=== PATIENT | female | born 1995 | race American Indian/Alaskan Native ===

== ENCOUNTER 2017-11-20 16:54 | Emergency (ER) | payer MEDICAID ==
[2017-11-20] MEDS ORDERED: ZOFRAN IV ONE (17:53)
[2017-11-20 18:43] LABS: Basophils % (Auto) 0.6 % (0.0-1.8); Eosinophils # (Auto) 0.1 K/mm3 (0.0-0.4); Eosinophils % (Auto) 1.3 % (0.0-4.3); Hematocrit 27.7 % (30.3-42.9); Hemoglobin 9.2 gm/dl (10.1-14.3); Lymphocytes % (Auto) 32.4 % (13.4-35.0); Mean Corpuscular HGB Conc 33 % (30-34); Mean Corpuscular Hemoglobin 30 pg (28-32); Mean Corpuscular Volume 89 fl (79-97); Monocytes # (Auto) 0.6 K/mm3 (0.0-0.8); Monocytes % (Auto) 10.5 % (0.0-7.3); Platelet Count 209 K/mm3 (140-440); Red Blood Count 3.12 M/mm3 (3.65-5.03); Red Cell Distribution Width 14.1 % (13.2-15.2)
[2017-11-20 18:58] LABS: Albumin 3.5 g/dL (3.9-5)
[2017-11-20 19:35] VITALS: BP 122/77
--- NOTE | 2017-11-20 20:07 | Emergency Department Report ---
ED Abdominal Pain HPI - General Chief Complaint: High BP Stated Complaint: HBP/LOW BLOOD SUGAR Time Seen by Provider: 11/20/17 17:39 Source: EMS Mode of arrival: Stretcher Limitations: No Limitations - History of Present Illness Initial Comments: 22-year-old female with a past medical history of insulin-dependent diabetes, hypertension, end-stage renal disease on dialysis presents to the hospital with complaints of epigastric pain, nausea, vomiting, elevated blood pressure, and low glucose. Symptoms started this a.m. Patient states she's been having twisting epigastric pain and had 3-4 episodes of vomiting earlier today. Last bowel movement was this a.m. She denies melena, hematochezia, hematemesis, coffee-ground emesis, fevers, or previous abdominal surgeries. As per patient' s medications she is currently on Protonix and was recently prescribed Bentyl on November 11. Patient glucose was in the 40s upon EMS arrival. She ate a Pop Tart and glucose improved to the 60s. Patient currently does not have any pain or nausea and is requesting something to eat. She checks her blood pressure often and states that he has been fluctuating high and low for the Past week. She took her insulin today and states she ate a normal amount of food. She has minimal urine output chronically. This is her first visit here she typically goes to [facility] and her doctors are not affiliated with [facility]. - Related Data Previous Rx's Medication Instructions Recorded Last Taken Type Ondansetron [Zofran Odt] 4 mg PO Q8HR PRN #20 tab.rapdis 11/20/17 Unknown Rx Allergies Allergy/AdvReac Type Severity Reaction Status Date / Time ciprofloxacin [From Cipro] Allergy Unknown Unknown Verified 11/20/17 17:20 Penicillins Allergy Unknown Unknown Verified 11/20/17 17:19 ED Review of Systems ROS: Stated complaint: HBP/LOW BLOOD SUGAR Other details as noted in HPI Comment: All other systems reviewed and negative ED Past Medical Hx - Past Medical History Previous Medical History?: Yes Hx Hypertension: Yes Hx Diabetes: Yes Hx Renal Disease: Yes (Dialysis Tues, Thurs & Sat) Additional medical history: Vas Cath to right upper chest - Social History Smoking Status: Never Smoker Substance Use Type: None - Medications Home Medications: Home Medications Medication Instructions Recorded Confirmed Last Taken Type Ondansetron [Zofran Odt] 4 mg PO Q8HR PRN #20 tab.rapdis 11/20/17 Unknown Rx ED Physical Exam - General Limitations: No Limitations - Other Other exam information: General: No limitations, patient is alert in no acute distress Head exam: Atraumatic, normocephalic Eyes exam: Normal appearance ENT: Moist mucous membrane, normal oropharynx Neck exam: Normal inspection, full range of motion, no meningismus nontender Respiratory exam: Clear to auscultation bilateral, no wheezes, rales, crackles Cardiovascular: Normal rate and rhythm, right upper chest wall dialysis catheter Abdomen: Soft, nondistended, and nontender, with normal bowel sounds, no rebound, or guarding Extremity: Full range of motion normal inspection no deformity Back: Normal Inspection, full range of motion, no tenderness Neurologic: Alert, oriented x3, cranial nerves intact, no motor or sensory deficit Psychiatric: normal affect, normal mood ED Course Vital Signs 11/20/17 11/20/17 11/20/17 17:07 17:15 17:30 Temperature Pulse Rate 89 91 H 92 H Respiratory 7 L 10 L 11 L Rate Blood Pressure 156/105 134/90 O2 Sat by Pulse 99 Oximetry 11/20/17 11/20/17 11/20/17 17:45 18:00 18:15 Temperature Pulse Rate 92 H 91 H 86 Respiratory 16 13 13 Rate Blood Pressure 149/103 166/103 150/98 O2 Sat by Pulse 100 98 98 Oximetry 11/20/17 11/20/17 11/20/17 18:30 18:45 19:00 Temperature Pulse Rate 89 93 H 95 H Respiratory 13 15 11 L Rate Blood Pressure 138/93 121/77 109/68 O2 Sat by Pulse 96 Oximetry 11/20/17 11/20/17 19:15 20:02 Temperature 98 F Pulse Rate 96 H Respiratory 15 Rate Blood Pressure 122/77 O2 Sat by Pulse Oximetry - Reevaluation(s) Reevaluation #1: 11/20/17 20:50 Patient received Zofran in the ED. She is tolerating food. She has not had any recurrent pain, nausea, vomiting episodes while in the ED ED Medical Decision Making - Lab Data Result diagrams: 11/20/17 18:23 11/20/17 18:23 Lab Results 11/20/17 11/20/17 11/20/17 Range/Units 17:48 18:23 18:23 WBC 6.2 (4.5-11.0) K/mm3 RBC 3.12 L (3.65-5.03) M/mm3 Hgb 9.2 L (10.1-14.3) gm/dl Hct 27.7 L (30.3-42.9) % MCV 89 (79-97) fl MCH 30 (28-32) pg MCHC 33 (30-34) % RDW 14.1 (13.2-15.2) % Plt Count 209 (140-440) K/mm3 Lymph % (Auto) 32.4 (13.4-35.0) % Schley % (Auto) 10.5 H (0.0-7.3) % Eos % (Auto) 1.3 (0.0-4.3) % Baso % (Auto) 0.6 (0.0-1.8) % Lymph # 2.0 (1.2-5.4) K/mm3 Schley # 0.6 (0.0-0.8) K/mm3 Eos # 0.1 (0.0-0.4) K/mm3 Baso # 0.0 (0.0-0.1) K/mm3 Seg Neutrophils % 55.2 (40.0-70.0) % Seg Neutrophils # 3.4 (1.8-7.7) K/mm3 Sodium 138 (137-145) mmol/L Potassium 3.8 (3.6-5.0) mmol/L Chloride 95.6 L (98-107) mmol/L Carbon Dioxide 30 (22-30) mmol/L Anion Gap 16 mmol/L BUN 29 H (7-17) mg/dL Creatinine 3.7 H (0.7-1.2) mg/dL Estimated GFR 18 ml/min BUN/Creatinine Ratio 8 % Glucose 97 (65-100) mg/dL POC Glucose 112 H (70-105) Calcium 9.0 (8.4-10.2) mg/dL Total Bilirubin 0.20 (0.1-1.2) mg/dL AST 17 (5-40) units/L ALT 19 (7-56) units/L Alkaline Phosphatase 90 (35-129) units/L Total Protein 6.7 (6.3-8.2) g/dL Albumin 3.5 L (3.9-5) g/dL Albumin/Globulin Ratio 1.1 % Lipase 7 L (13-60) units/L HCG, Qual (Negative) 11/20/17 11/20/17 Range/Units 18:23 20:09 WBC (4.5-11.0) K/mm3 RBC (3.65-5.03) M/mm3 Hgb (10.1-14.3) gm/dl Hct (30.3-42.9) % MCV (79-97) fl MCH (28-32) pg MCHC (30-34) % RDW (13.2-15.2) % Plt Count (140-440) K/mm3 Lymph % (Auto) (13.4-35.0) % Schley % (Auto) (0.0-7.3) % Eos % (Auto) (0.0-4.3) % Baso % (Auto) (0.0-1.8) % Lymph # (1.2-5.4) K/mm3 Schley # (0.0-0.8) K/mm3 Eos # (0.0-0.4) K/mm3 Baso # (0.0-0.1) K/mm3 Seg Neutrophils % (40.0-70.0) % Seg Neutrophils # (1.8-7.7) K/mm3 Sodium (137-145) mmol/L Potassium (3.6-5.0) mmol/L Chloride (98-107) mmol/L Carbon Dioxide (22-30) mmol/L Anion Gap mmol/L BUN (7-17) mg/dL Creatinine (0.7-1.2) mg/dL Estimated GFR ml/min BUN/Creatinine Ratio % Glucose (65-100) mg/dL POC Glucose 73 (70-105) Calcium (8.4-10.2) mg/dL Total Bilirubin (0.1-1.2) mg/dL AST (5-40) units/L ALT (7-56) units/L Alkaline Phosphatase (35-129) units/L Total Protein (6.3-8.2) g/dL Albumin (3.9-5) g/dL Albumin/Globulin Ratio % Lipase (13-60) units/L HCG, Qual Negative (Negative) - Medical Decision Making since arrival to the ED patient's BP has been in normal range. Patient's glucose has been relatively stable and she was fed prior to discharge. Patient has also been asymptomatic without any pain. She'll be discharged home to follow with her primary care doctor and relationship mgr - Differential Diagnosis gastritis, gastroparesis, DKA, infection, Critical Care Time: No Critical care attestation.: If time is entered above; I have spent that time in minutes in the direct care of this critically ill patient, excluding procedure time. ED Disposition Clinical Impression: Gastritis, Hypoglycemia associated with diabetes, ESRD (end stage renal disease ) on dialysis Disposition: TO HOME OR SELFCARE Is pt being admited?: No Does the pt Need Aspirin: No Condition: Stable Instructions: Gastritis (ED), End-Stage Kidney Disease (ED), Diabetes Mellitus Type 1 in Adults (ED) Additional Instructions: Continue your current medication. Continue to monitor your blood pressure and glucose at home. Follow-up with his doctors for adjustment in your medications. Return if symptoms worsen as indicated by the discharge instructions. Prescriptions: Ondansetron [Zofran Odt] 4 mg PO Q8HR PRN #20 tab.rapdis PRN Reason: Nausea And Vomiting Referrals: PRIMARY CARE,MD [Primary Care Provider] - 3-5 Days your, nephrolgist [Other] - 3-5 Days Time of Disposition: 20:53
== END 2017-11-20 21:05 | disposition home or self-care (01) ==
LOC: ED 16:54
DX: E11.649 Type 2 diabetes mellitus with hypoglycemia without coma (principal); I12.0 Hypertensive chronic kidney disease with stage 5 chronic kidney disease or end stage renal disease; E11.22 Type 2 diabetes mellitus with diabetic chronic kidney disease; K29.70 Gastritis, unspecified, without bleeding; N18.6 End stage renal disease; Z99.2 Dependence on renal dialysis; Z79.899 Other long term (current) drug therapy; Z88.0 Allergy status to penicillin; Z88.1 Allergy status to other antibiotic agents
CPT/HCPCS: 36415; 80053; 82962; 83690; 84703; 85025; 96374; 99283; J2405

== ENCOUNTER 2018-05-06 16:17 | Emergency (ER) | payer MEDICARE, MEDICAID ==
--- NOTE | 2018-05-06 17:18 | Emergency Department Report ---
ED General Adult HPI - General Chief complaint: Hypoglycemia Stated complaint: LOW BLOOD GLUCOSE Time Seen by Provider: 05/06/18 17:18 Source: EMS Mode of arrival: Stretcher Limitations: No Limitations - History of Present Illness Initial comments: She is a 23-year-old female that is emergent with complaints of low blood sugar and altered mental status. Patient is brought in by EMS. Patient was found by EMS to be unresponsive and diaphoretic and was given D50 and woke up. Patient and EMS state that she had her dialysis today then took 6 units of regular insulin and didn't eat and her sugar dropped. Patient states this happens frequently due to forgetting to eat. Patient denies chest pain shortness of breath. Patient states she is tired from having a low blood sugar and dialysis.. Patient denies abdominal pain. Patient denies headache. Patient denies dizziness. -: Sudden Improves with: eating, medication, rest Worsens with: none Associated Symptoms: confusion, diaphoresis. denies: chest pain, cough, fever/chills, headaches, loss of appetite, malaise, nausea/vomiting, rash, seizure, shortness of breath, syncope, weakness Treatments Prior to Arrival: other (D50) - Related Data Previous Rx's Medication Instructions Recorded Last Taken Type Ondansetron [Zofran Odt] 4 mg PO Q8HR PRN #20 tab.rapdis 11/20/17 Unknown Rx Dicyclomine [Bentyl] 10 mg PO QID PRN #20 capsule 02/01/18 Unknown Rx Metoclopramide [Reglan] 10 mg PO Q6HR PRN #20 tab 02/01/18 Unknown Rx Ondansetron [Zofran ODT TAB] 4 mg PO Q4HR PRN #20 tab.rapdis 03/22/18 Unknown Rx traMADol [Ultram] 50 mg PO Q6HR PRN #12 tablet 03/22/18 Unknown Rx Allergies Allergy/AdvReac Type Severity Reaction Status Date / Time ciprofloxacin [From Cipro] Allergy Unknown Unknown Verified 11/20/17 17:20 Penicillins Allergy Unknown Unknown Verified 11/20/17 17:19 clindamycin Allergy Unknown Verified 02/01/18 19:38 codeine Allergy Unknown Verified 02/01/18 19:38 ED Review of Systems ROS: Stated complaint: LOW BLOOD GLUCOSE Other details as noted in HPI Constitutional: denies: chills, fever Eyes: denies: eye pain, eye discharge, vision change ENT: denies: ear pain, throat pain Respiratory: denies: cough, shortness of breath, wheezing Cardiovascular: denies: chest pain, palpitations Endocrine: no symptoms reported Gastrointestinal: denies: abdominal pain, nausea, diarrhea Genitourinary: denies: urgency, dysuria, discharge Musculoskeletal: denies: back pain, joint swelling, arthralgia Skin: denies: rash, lesions Neurological: denies: headache, weakness, paresthesias Psychiatric: denies: anxiety, depression Hematological/Lymphatic: denies: easy bleeding, easy bruising ED Past Medical Hx - Past Medical History Previous Medical History?: Yes Hx Hypertension: Yes Hx Diabetes: Yes Hx Renal Disease: Yes (Dialysis Tues, Th & Sat) Additional medical history: Vas Cath to left upper chest - Surgical History Past Surgical History?: Yes Additional Surgical History: dialysis access - Family History Family history: no significant - Social History Smoking Status: Never Smoker Substance Use Type: None - Medications Home Medications: Home Medications Medication Instructions Recorded Confirmed Last Taken Type Ondansetron [Zofran Odt] 4 mg PO Q8HR PRN #20 tab.rapdis 11/20/17 Unknown Rx Dicyclomine [Bentyl] 10 mg PO QID PRN #20 capsule 02/01/18 Unknown Rx Metoclopramide [Reglan] 10 mg PO Q6HR PRN #20 tab 02/01/18 Unknown Rx Ondansetron [Zofran ODT TAB] 4 mg PO Q4HR PRN #20 tab.rapdis 03/22/18 Unknown Rx traMADol [Ultram] 50 mg PO Q6HR PRN #12 tablet 03/22/18 Unknown Rx ED Physical Exam - General Limitations: No Limitations General appearance: alert, in no apparent distress - Head Head exam: Present: atraumatic, normocephalic - Eye Eye exam: Present: normal appearance - ENT ENT exam: Present: mucous membranes moist - Neck Neck exam: Present: normal inspection - Respiratory Respiratory exam: Present: normal lung sounds bilaterally. Absent: respiratory distress - Cardiovascular Cardiovascular Exam: Present: regular rate, normal rhythm. Absent: systolic murmur, diastolic murmur, rubs, gallop - GI/Abdominal GI/Abdominal exam: Present: soft, normal bowel sounds - Extremities Exam Extremities exam: Present: normal inspection - Back Exam Back exam: Present: normal inspection - Neurological Exam Neurological exam: Present: alert, oriented X3 - Psychiatric Psychiatric exam: Present: normal affect, normal mood - Skin Skin exam: Present: warm, dry, intact, normal color. Absent: rash ED Course Vital Signs 05/06/18 05/06/18 05/06/18 16:26 16:30 16:35 Pulse Rate 87 84 88 Respiratory 9 L 20 16 Rate Blood Pressure 145/94 145/94 145/94 O2 Sat by Pulse 99 100 100 Oximetry 05/06/18 05/06/18 05/06/18 16:46 17:00 17:16 Pulse Rate Respiratory Rate Blood Pressure 145/94 141/85 141/85 O2 Sat by Pulse 99 100 100 Oximetry 05/06/18 05/06/18 05/06/18 17:30 17:46 18:00 Pulse Rate Respiratory Rate Blood Pressure 141/85 141/85 117/71 O2 Sat by Pulse 100 100 99 Oximetry 05/06/18 05/06/18 05/06/18 18:16 18:30 18:46 Pulse Rate Respiratory Rate Blood Pressure 117/71 117/71 117/71 O2 Sat by Pulse 99 99 99 Oximetry 05/06/18 05/06/18 05/06/18 19:00 19:16 19:30 Pulse Rate Respiratory Rate Blood Pressure 120/76 120/76 120/76 O2 Sat by Pulse 99 100 100 Oximetry 05/06/18 05/06/18 05/06/18 19:46 20:00 20:16 Pulse Rate Respiratory Rate Blood Pressure 120/76 162/101 162/101 O2 Sat by Pulse 100 99 100 Oximetry 05/06/18 05/06/18 20:30 20:46 Pulse Rate 74 Respiratory Rate Blood Pressure 162/101 O2 Sat by Pulse 100 Oximetry - Reevaluation(s) Reevaluation #1: Initial evaluation done. Patient is lethargic. Patient states that she is always lethargic after dialysis. Patient sugar rechecked and is above 100. Tolerating by mouth intake.. We'll order labs 05/06/18 17:18 Scars all result patient. Patient voiced understanding of results. Patient is stable. Patient will be discharged home. Patient given a meal instructions for her insulin. Patient advised to eat regularly with her insulin and not to take her insulin without eating. Patient given discharge instructions. Patient can return to the instructions. Patient voiced understanding of all instructions. 05/06/18 20:35 ED Medical Decision Making - Lab Data Result diagrams: 05/06/18 18:32 05/06/18 18:32 - Medical Decision Making Patient is a 23-year-old female that since emergency room with hypoglycemia and unresponsiveness. Patient improved with D50 and oral intake. Patient's sugar has stabilized. Patient's labs reviewed and are consistent with patient's past medical history. Patient's labs essentially unremarkable. Patient given discharge instructions. Patient stable discharge. Patient will be discharged home. - Differential Diagnosis missed meal. Hypoglycemia. [facility] Critical care attestation.: If time is entered above; I have spent that time in minutes in the direct care of this critically ill patient, excluding procedure time. ED Disposition Clinical Impression: Hypoglycemia, Lethargy CKD (chronic kidney disease) Qualifiers: Chronic kidney disease stage: on chronic dialysis Qualified Code(s): N18.6 - End stage renal disease Diabetes Qualifiers: Diabetes mellitus type: type 1 Diabetes mellitus complication status: without complication Qualified Code(s): E10.9 - Type 1 diabetes mellitus without complications Disposition: -09 OP ADMIT IP TO THIS HOSP Is pt being admited?: Yes Does the pt Need Aspirin: No Condition: Stable Instructions: Diabetic Hypoglycemia (ED) Additional Instructions: Patient to follow up with primary care 2-3 days. 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 Patient to take medications regularly and eat regular meals. Patient to return to ER if condition worsens. Patient increase water. Patient to rest. 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 Referrals: JOSELINE SANTOS MD [Primary Care Provider] - 2-3 Days Time of Disposition: 20:39
[2018-05-06 19:04] LABS: Basophils # (Auto) 0.1 K/mm3 (0.0-0.1); Eosinophils # (Auto) 0.1 K/mm3 (0.0-0.4); Eosinophils % (Auto) 1.5 % (0.0-4.3); Hematocrit 27.7 % (30.3-42.9); Hemoglobin 8.9 gm/dl (10.1-14.3); Lymphocytes # (Auto) 1.2 K/mm3 (1.2-5.4); Lymphocytes % (Auto) 19.5 % (13.4-35.0); Mean Corpuscular HGB Conc 32 % (30-34); Mean Corpuscular Volume 93 fl (79-97); Monocytes # (Auto) 0.4 K/mm3 (0.0-0.8); Monocytes % (Auto) 6.1 % (0.0-7.3); Platelet Count 366 K/mm3 (140-440); Red Blood Count 2.99 M/mm3 (3.65-5.03); Red Cell Distribution Width 19.4 % (13.2-15.2)
[2018-05-06 19:26] LABS: Calcium 8.8 mg/dL (8.4-10.2)
[2018-05-06 20:46] VITALS: BP 162/101
== END 2018-05-06 20:45 | disposition admitted as inpatient to this hospital (09) ==
LOC: ED 16:17
DX: E11.649 Type 2 diabetes mellitus with hypoglycemia without coma (principal); E11.22 Type 2 diabetes mellitus with diabetic chronic kidney disease; I12.9 Hypertensive chronic kidney disease with stage 1 through stage 4 chronic kidney disease, or unspecified chronic kidney disease; N18.9 Chronic kidney disease, unspecified; R53.83 Other fatigue; Z99.2 Dependence on renal dialysis; Z79.4 Long term (current) use of insulin; Z88.1 Allergy status to other antibiotic agents; Z88.0 Allergy status to penicillin; Z88.5 Allergy status to narcotic agent
CPT/HCPCS: 36415; 80048; 82962; 85025

== ENCOUNTER 2018-05-17 18:04 | Emergency (ER) | payer MEDICARE, MEDICAID ==
[2018-05-17] MEDS ORDERED: MORPHINE IV ONE (18:14)
[2018-05-17] MEDS ORDERED: ZOFRAN IV ONE (18:14)
[2018-05-17] MEDS ORDERED: PEPCID IV ONE (18:14)
[2018-05-17] MEDS ORDERED: APRESOLINE IV ONE (18:17)
--- NOTE | 2018-05-17 18:25 | Emergency Department Report ---
ED General Adult HPI - General Stated complaint: HBP/HBG Time Seen by Provider: 05/17/18 18:12 - History of Present Illness Initial comments: Ms. Mcfarland is a 23 yo female with hx of ESRD on HD T/R/Sa, IDDM who presents with elevated blood pressure and elevated blood sugar since dialysis on yesterday. Has moderately severe frontal headache. I have evaluated Ms. Alcala on two previous occasions in March. Dr. Saini is new PCP. She receives dialysis at [facility] in [place]. She has been receiving antibiotics with dialysis for wounds and sores on hands and legs. -: Gradual, days(s) (2) Location: head Quality: dull Consistency: constant Improves with: none Worsens with: none Associated Symptoms: headaches, other (skin lesions) - Related Data Previous Rx's Medication Instructions Recorded Last Taken Type Ondansetron [Zofran Odt] 4 mg PO Q8HR PRN #20 tab.rapdis 11/20/17 Unknown Rx Dicyclomine [Bentyl] 10 mg PO QID PRN #20 capsule 02/01/18 Unknown Rx Metoclopramide [Reglan] 10 mg PO Q6HR PRN #20 tab 02/01/18 Unknown Rx Ondansetron [Zofran ODT TAB] 4 mg PO Q4HR PRN #20 tab.rapdis 03/22/18 Unknown Rx traMADol [Ultram] 50 mg PO Q6HR PRN #12 tablet 03/22/18 Unknown Rx Allergies Allergy/AdvReac Type Severity Reaction Status Date / Time ciprofloxacin [From Cipro] Allergy Unknown Unknown Verified 05/17/18 18:29 Penicillins Allergy Unknown Unknown Verified 05/17/18 18:29 clindamycin Allergy Unknown Verified 05/17/18 18:29 codeine Allergy Unknown Verified 05/17/18 18:29 ED Review of Systems ROS: Stated complaint: HBP/HBG Other details as noted in HPI Comment: All other systems reviewed and negative Constitutional: malaise Respiratory: denies: cough Gastrointestinal: nausea Neurological: headache ED Past Medical Hx - Past Medical History Previous Medical History?: Yes Hx Hypertension: Yes Hx Diabetes: Yes Hx Renal Disease: Yes (Dialysis Tues, Thurs & Sat) Additional medical history: Vas Cath to left upper chest - Surgical History Additional Surgical History: dialysis access - Social History Smoking Status: Never Smoker Substance Use Type: None - Medications Home Medications: Home Medications Medication Instructions Recorded Confirmed Last Taken Type Ondansetron [Zofran Odt] 4 mg PO Q8HR PRN #20 tab.rapdis 11/20/17 Unknown Rx Dicyclomine [Bentyl] 10 mg PO QID PRN #20 capsule 02/01/18 Unknown Rx Metoclopramide [Reglan] 10 mg PO Q6HR PRN #20 tab 02/01/18 Unknown Rx Ondansetron [Zofran ODT TAB] 4 mg PO Q4HR PRN #20 tab.rapdis 03/22/18 Unknown Rx traMADol [Ultram] 50 mg PO Q6HR PRN #12 tablet 03/22/18 Unknown Rx ED Physical Exam - General General appearance: alert, in no apparent distress, other (appears chronically ill) - Head Head exam: Present: atraumatic, normocephalic - Eye Eye exam: Present: normal appearance - ENT ENT exam: Present: mucous membranes moist - Neck Neck exam: Present: normal inspection - Respiratory Respiratory exam: Present: normal lung sounds bilaterally. Absent: respiratory distress, wheezes, rales, rhonchi - Cardiovascular Cardiovascular Exam: Present: regular rate, normal rhythm, normal heart sounds, other (chest vascath side clean dry intact). Absent: systolic murmur, diastolic murmur, rubs, gallop - GI/Abdominal GI/Abdominal exam: Present: soft, normal bowel sounds. Absent: distended, tenderness, guarding, rebound - Extremities Exam Extremities exam: Present: normal inspection - Back Exam Back exam: Present: normal inspection - Neurological Exam Neurological exam: Present: alert, oriented X3 - Psychiatric Psychiatric exam: Present: flat affect - Skin Skin exam: Present: warm, dry, intact, normal color, other (healing wound on left hand at [place], bandage right hand, numerous ulcers on lateral left thigh and leg). Absent: rash ED Course Vital Signs 05/17/18 05/17/18 05/17/18 18:16 18:29 18:30 Temperature 98.6 F Pulse Rate 111 H 114 H Respiratory 24 Rate Blood Pressure 196/136 O2 Sat by Pulse 96 96 97 Oximetry 05/17/18 05/17/18 05/17/18 18:46 19:00 19:13 Temperature Pulse Rate 112 H 114 H 113 H Respiratory 11 L 12 Rate Blood Pressure 206/138 O2 Sat by Pulse 98 97 Oximetry 05/17/18 05/17/18 05/17/18 19:16 19:25 19:30 Temperature Pulse Rate 113 H 112 H Respiratory 13 17 8 L Rate Blood Pressure 208/136 157/112 O2 Sat by Pulse 96 96 96 Oximetry 05/17/18 05/17/18 05/17/18 19:46 20:00 20:16 Temperature Pulse Rate 114 H 115 H 113 H Respiratory 9 L 14 12 Rate Blood Pressure 144/100 133/102 133/102 O2 Sat by Pulse 97 97 95 Oximetry ED Medical Decision Making - Lab Data Result diagrams: 05/17/18 18:17 05/17/18 18:17 - Radiology Data EKG obtained at 1823 Sinus tachycardia rate 110 beats a minute left axis deviation positive LVH and prolonged QT interval no ST elevation or signs of ischemia - Medical Decision Making Ms. Alcala presents with recurrent headache with elevated blood pressure and elevated blood sugars at home. Home medications include antihypertensive hydralazine 100 mg 3 times a day. After treatment in the ED, repeat blood pressure 132/109. Blood glucose 309 on Chemistry. No evidence of DKA. Ms. Alcala insisted on promethazine for antiemetic. She did not have any vomiting here in the ED. She was given IV Zofran, IV reglan and IV benadryl. Unfortunately I am concerned the patient does have drug dependence. I do understand with history of juvenile diabetes and ESRD that she will need constant supportive care. She does have impressive leg ulcers seen on exam today. I have treated Ms. Alcala on 2 previous occasions, she has insisted on hydromorphone and promethazine for headache and abdominal pain. She does have history of gastroparesis according to her report. Very complex patient. However today she does not have any life or limb threatening conditions which need further resuscitation or evaluation. She is discharged home to f/u with PCP. Critical care attestation.: If time is entered above; I have spent that time in minutes in the direct care of this critically ill patient, excluding procedure time. ED Disposition Clinical Impression: Diabetes, Hypertension, Recurrent headache, Nausea Disposition: - TO HOME OR SELFCARE Is pt being admited?: No Does the pt Need Aspirin: No Condition: Stable Instructions: Acute Headache (ED) Referrals: SANJAY AUSTIN MD [Primary Care Provider] - 3-5 Days
[2018-05-17 18:36] LABS: Hematocrit 35.5 % (30.3-42.9); Hemoglobin 11.5 gm/dl (10.1-14.3); Mean Corpuscular HGB Conc 32 % (30-34); Mean Corpuscular Volume 91 fl (79-97); Platelet Count 333 K/mm3 (140-440); Red Blood Count 3.91 M/mm3 (3.65-5.03)
[2018-05-17 18:37] LABS: Red Cell Distribution Width 20.2 % (13.2-15.2)
[2018-05-17 19:18] LABS: Anisocytosis 1+; Basophils % (Manual) 0 % (0.0-1.8); Eosinophils % (Manual) 0 % (0.0-4.3); Poikilocytosis Few; Total Cells Counted 100
[2018-05-17] MEDS ORDERED: REGLAN IV ONE (19:54)
[2018-05-17] MEDS ORDERED: BENADRYL IV ONE (19:54)
[2018-05-17 20:27] VITALS: BP 133/102
== END 2018-05-17 22:19 | disposition home or self-care (01) ==
LOC: ED 18:04
DX: E11.22 Type 2 diabetes mellitus with diabetic chronic kidney disease (principal); I12.0 Hypertensive chronic kidney disease with stage 5 chronic kidney disease or end stage renal disease; N18.6 End stage renal disease; Z99.2 Dependence on renal dialysis; Z79.4 Long term (current) use of insulin; Z88.1 Allergy status to other antibiotic agents; Z88.0 Allergy status to penicillin; Z88.5 Allergy status to narcotic agent
CPT/HCPCS: 36415; 80048; 85007; 85025; 93005; 93010; 96374; 96375; 99284; J0360; J1200; J2270; J2405; J2765

== ENCOUNTER 2018-05-18 11:54 | Emergency (ER) | payer MEDICARE ==
[2018-05-18] MEDS ORDERED: ZOFRAN IV ONE (12:32)
[2018-05-18] MEDS ORDERED: DILAUDID IV ONE ×2 (12:32→16:07)
--- NOTE | 2018-05-18 12:43 | Emergency Department Report ---
HPI - General Chief Complaint: Abdominal Pain Time Seen by Provider: 05/18/18 12:14 - HPI HPI: 23-year-old -Spanish female presents to the emergency department with complaint of a few days of generalized abdominal pain, nausea and vomiting. The patient was seen here in the emergency department yesterday and had a workup that included mostly normal labs, except for her end-stage renal disease, and she was discharged home after symptomatic treatment. The patient does have a past medical history of end-stage renal disease on dialysis on //Tuesday, diabetes, hypertension. She has some chronic wounds and ulcerations. Her primary care physician is Dr. Saini. 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 ED Past Medical Hx - Past Medical History Hx Hypertension: Yes Hx Diabetes: Yes Hx Renal Disease: Yes (Dialysis , & Tue) Additional medical history: Vas Cath to left upper chest - Surgical History Additional Surgical History: dialysis access - Social History Smoking Status: Never Smoker Substance Use Type: None - Medications Home Medications: Home Medications Medication Instructions Recorded Confirmed Last Taken Type Ondansetron [Zofran Odt] 4 mg PO Q8HR PRN #20 tab.rapdis 11/20/17 Unknown Rx Dicyclomine [Bentyl] 10 mg PO QID PRN #20 capsule 02/01/18 Unknown Rx Metoclopramide [Reglan] 10 mg PO Q6HR PRN #20 tab 02/01/18 Unknown Rx RX: Ondansetron [Zofran ODT TAB] 4 mg PO Q4HR PRN #20 tab.rapdis 03/22/18 Unknown Rx traMADol [Ultram] 50 mg PO Q6HR PRN #12 tablet 03/22/18 Unknown Rx ED Review of Systems ROS: Stated complaint: ABD PAIN Other details as noted in HPI Comment: All other systems reviewed and negative Constitutional: denies: chills, fever Eyes: denies: eye pain, vision change ENT: denies: ear pain, throat pain Respiratory: denies: cough, shortness of breath Cardiovascular: denies: chest pain, palpitations Gastrointestinal: abdominal pain, nausea, vomiting Genitourinary: denies: dysuria, discharge Musculoskeletal: denies: joint swelling, arthralgia Skin: denies: rash, lesions Neurological: denies: weakness, numbness Physical Exam - Physical Exam Vital Signs: Vital Signs 05/18/18 05/18/18 12:06 12:12 Temperature 98 F 98.1 F Pulse Rate 100 H 100 H Respiratory 18 Rate Blood Pressure 140/90 Blood Pressure 140/90 [Left] O2 Sat by Pulse 18 L 99 Oximetry Physical Exam: GENERAL: The patient is well-developed well-nourished. HEENT: Normocephalic. Atraumatic. Patient has moist mucous membranes. EYES: Extraocular motions are intact. Pupils are equal and reactive to light bilaterally. NECK: Supple. Trachea is midline. CHEST/LUNGS: Clear to auscultation. There is no respiratory distress noted. HEART/CARDIOVASCULAR: Regular. There is no tachycardia. There is no obvious murmur. ABDOMEN: Abdomen is soft. Generalized abdominal tenderness to palpation. No guarding. Patient has normal bowel sounds. There is no abdominal distention. SKIN: Skin is warm and dry. NEURO: The patient is awake, alert, and oriented. The patient is cooperative. The patient has no focal neurologic deficits. The patient has normal speech. Cranial nerves II through XII grossly intact. MUSCULOSKELETAL: There is no tenderness or deformity. There is no evidence of acute injury. ED Course Vital Signs 05/18/18 05/18/18 12:06 12:12 Temperature 98 F 98.1 F Pulse Rate 100 H 100 H Respiratory 18 Rate Blood Pressure 140/90 Blood Pressure 140/90 [Left] O2 Sat by Pulse 18 L 99 Oximetry ED Medical Decision Making - Lab Data Result diagrams: 05/18/18 12:39 05/18/18 12:39 - Radiology Data Radiology results: report reviewed CT ABDOMEN PELVIS WITHOUT CONTRAST: HISTORY: abdominal pain. COMPARISON: none. TECHNIQUE: Helical CT in 1.25mm intervals without IV contrast. Sagittal and coronal reconstructions. FINDINGS: Lung bases: Mild cardiomegaly and small pericardial effusion are identified. A dialysis catheter terminates in the right atrium. Liver: Normal. Biliary system: Normal. Pancreas: Normal. Spleen: Normal. Kidneys/ureters/bladder: The kidneys and collecting systems are unremarkable. The bladder is markedly distended measuring 18.4 x 13.8 x 11.7 cm. Bladder outlet obstruction should be considered. Adrenal glands: Normal. Aorta: Normal. Intestines: Normal. Appendix: Normal. Pelvic viscera: Normal. Ascites: None. Adenopathy: None. Musculoskeletal: Intact. Mild lumbar scoliosis is noted. IMPRESSION: Marked bladder distention. Correlate for bladder outlet obstruction. Mild cardiomegaly and small pericardial effusion. Transcribed By: TTR Dictated By: FRANCES FERNANDES JR, MD Electronically Authenticated By: FRANCES FERNANDES JR, MD Signed Date/Time: 05/18/18 1432 Transcribed By: MRM Dictated By: RONDA ROSAS MD Electronically Authenticated By: RONDA ROSAS MD Signed Date/Time: 05/18/[address] HEAD WITHOUT CONTRAST: HISTORY: Headache. TECHNIQUE: Sequential 2.5mm CT images. COMPARISON: none. FINDINGS: Cerebral Parenchyma: Within normal limits. Cerebellum: Within normal limits. Brainstem: On images 15-18, there is linear hyperdensity within the central portions of the ozzie. Internal density measures 43 Hounsfield units. I cannot exclude a small pontine hemorrhage although this does not have the typical appearance of a hemorrhage. Ventricles: Normal. Sella: Normal. Extra-axial spaces: Normal. Basal Cisterns: Normal. Intracranial Hemorrhage: None. Midline Shift: None. Calvarium: Normal. Sinuses: Normal. Mastoid Air Cells: Normal. Visualized Orbits: Normal. IMPRESSION: Abnormal appearance of the ozzie as outlined above. The etiology of this is unclear but a small hemorrhage is difficult to exclude. Consider further evaluation with MRI brain with contrast if renal function permits. Transcribed By: TTR Dictated By: FRANCES FERNANDES JR, MD Electronically Authenticated By: FRANCES FERNANDES JR, MD Signed Date/Time: 05/18/18 1421 PROCEDURE: MRI brain without contrast. TECHNIQUE: Magnetic resonance imaging of the brain was performed without contrast material. HISTORY: Headache, abnormal CT scan. COMPARISON: No comparison studies sent. FINDINGS: The ventricles are normal in size. There is normal signal intensity from the astudillo matter and white matter. There are no mass lesions. There is no intracranial hemorrhage. There are no signs of restricted diffusion. The mastoid air cells and paranasal sinuses are well aerated. IMPRESSION: Normal study. - Medical Decision Making This patient presents 2 days in a row with complaint of abdominal pain, nausea and vomiting. Today she just complains of a headache. Patient's labs were mostly unremarkable. There is some renal insufficiency but she has end-stage renal disease and got dialysis this morning. No other significant collection of abnormalities. CT of the abdomen and pelvis without contrast did not show any acute process or etiology of her symptoms. CT of the head without contrast was read by radiology as concern for a questionable abnormal density within the ozzie saying that a small hemorrhage cannot be ruled out. For this reason a MRI of the brain was done that came back showing no signs of any bleed, shift, mass, ischemia, or any other acute process. On physical examination, patient does not have any focal, motor or sensory deficits. Cranial nerves are intact. She was given some nausea and pain medication. There is been no further episodes of vomiting and the patient is asking for something to drink and eat and passed an oral challenge. Vital signs stable throughout her ED course. She did have an episode of elevated blood pressure but came down with some antihypertensive medication. She's been discharged home to follow up with primary care, continue her dialysis regimen, but she will return to the emergency Department with any worsening of her symptoms or any acute distress. - Differential Diagnosis tension headache, migraine, brain bleed, colitis, gastroparesis Critical Care Time: No Critical care attestation.: If time is entered above; I have spent that time in minutes in the direct care of this critically ill patient, excluding procedure time. ED Disposition Clinical Impression: Recurrent headache CKD (chronic kidney disease) Qualifiers: Chronic kidney disease stage: unspecified stage Qualified Code(s): N18.9 - Chronic kidney disease, unspecified Abdominal pain Qualifiers: Abdominal location: generalized Qualified Code(s): R10.84 - Generalized abdominal pain Hypertension Qualifiers: Hypertension type: essential hypertension Qualified Code(s): I10 - Essential (primary) hypertension Disposition: TO HOME OR SELFCARE Is pt being admited?: No Condition: Stable Instructions: Acute Headache (ED), Abdominal Pain (ED), Hypertension (ED), End- Stage Kidney Disease (ED) Additional Instructions: Please follow up with a primary care physician. Continue with your normal dialysis regimen. Return to the emergency department with any worsening of your symptoms or any acute distress. Referrals: CUONG JOY DO [Primary Care Provider] - 2-3 Days [facility] [Outside] - 2-3 Days Time of Disposition: 20:04
[2018-05-18 13:02] LABS: Basophils % (Auto) 0.6 % (0.0-1.8); Eosinophils % (Auto) 0.1 % (0.0-4.3); Hematocrit 34.8 % (30.3-42.9); Hemoglobin 11.5 gm/dl (10.1-14.3); Lymphocytes # (Auto) 1.7 K/mm3 (1.2-5.4); Lymphocytes % (Auto) 26.1 % (13.4-35.0); Mean Corpuscular HGB Conc 33 % (30-34); Mean Corpuscular Volume 90 fl (79-97); Monocytes # (Auto) 0.6 K/mm3 (0.0-0.8); Monocytes % (Auto) 9.5 % (0.0-7.3); Platelet Count 277 K/mm3 (140-440); Red Blood Count 3.87 M/mm3 (3.65-5.03)
[2018-05-18 13:16] LABS: Alanine Aminotransferase 9 units/L (7-56); Albumin 3.2 g/dL (3.9-5); BUN/Creatinine Ratio 11; Blood Urea Nitrogen 28 mg/dL (7-17); Calcium 8.3 mg/dL (8.4-10.2); Hemolysis Index 10
[2018-05-18 13:24] LABS: Bilirubin,Direct < 0.2 mg/dL (0-0.2)
--- NOTE | 2018-05-18 13:59 | XRay Report ---
ABDOMINAL SERIES: History: Abdominal pain. Erect chest film demonstrates mild cardiomegaly with clear lungs. A left IJ dialysis catheter terminates in the superior right atrium. Supine and upright views of the abdomen demonstrate scattered small fluid levels throughout the abdomen. No evidence for dilated bowel or pathologic calcifications. No free air. IMPRESSION: Mild cardiomegaly. Scattered small air-fluid levels in the abdomen which could represent gastroenteritis. No obstruction is appreciated.
--- NOTE | 2018-05-18 14:24 | Cat Scan Report ---
CT HEAD WITHOUT CONTRAST: HISTORY: Headache. TECHNIQUE: Sequential 2.5mm CT images. COMPARISON: none. FINDINGS: Cerebral Parenchyma: Within normal limits. Cerebellum: Within normal limits. Brainstem: On images 15-18, there is linear hyperdensity within the central portions of the ozzie. Internal density measures 43 Hounsfield units. I cannot exclude a small pontine hemorrhage although this does not have the typical appearance of a hemorrhage. Ventricles: Normal. Sella: Normal. Extra-axial spaces: Normal. Basal Cisterns: Normal. Intracranial Hemorrhage: None. Midline Shift: None. Calvarium: Normal. Sinuses: Normal. Mastoid Air Cells: Normal. Visualized Orbits: Normal. IMPRESSION: Abnormal appearance of the ozzie as outlined above. The etiology of this is unclear but a small hemorrhage is difficult to exclude. Consider further evaluation with MRI brain with contrast if renal function permits.
--- NOTE | 2018-05-18 14:36 | Cat Scan Report ---
CT ABDOMEN PELVIS WITHOUT CONTRAST: HISTORY: abdominal pain. COMPARISON: none. TECHNIQUE: Helical CT in 1.25mm intervals without IV contrast. Sagittal and coronal reconstructions. FINDINGS: Lung bases: Mild cardiomegaly and small pericardial effusion are identified. A dialysis catheter terminates in the right atrium. Liver: Normal. Biliary system: Normal. Pancreas: Normal. Spleen: Normal. Kidneys/ureters/bladder: The kidneys and collecting systems are unremarkable. The bladder is markedly distended measuring 18.4 x 13.8 x 11.7 cm. Bladder outlet obstruction should be considered. Adrenal glands: Normal. Aorta: Normal. Intestines: Normal. Appendix: Normal. Pelvic viscera: Normal. Ascites: None. Adenopathy: None. Musculoskeletal: Intact. Mild lumbar scoliosis is noted. IMPRESSION: Marked bladder distention. Correlate for bladder outlet obstruction. Mild cardiomegaly and small pericardial effusion.
--- NOTE | 2018-05-18 16:28 | Consultation ---
History of Present Illness - Reason for Consult Consult date: 05/18/18 end stage renal disease - History of Present Illness This is a 23 year old female who presented to the E.R with a chief complaint of abdominal pain that started yesterday. Patient has ESRD and underwent HD treatment today before coming to the E.R. 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 She has a left IJ perm-catheter. We are being consulted for management of this patient's ESRD. Past History Past Medical History: diabetes, dialysis, ESRD, hypertension Past Surgical History: Other (Placement of left IJ perm-catheter) Social history: no significant social history Family history: no significant family history Medications and Allergies Allergies Allergy/AdvReac Type Severity Reaction Status Date / Time ciprofloxacin [From Cipro] Allergy Unknown Unknown Verified 05/17/18 18:29 Penicillins Allergy Unknown Unknown Verified 05/17/18 18:29 clindamycin Allergy Unknown Verified 05/17/18 18:29 codeine Allergy Unknown Verified 05/17/18 18:29 Home Medications Medication Instructions Recorded Confirmed Last Taken Type Ondansetron [Zofran Odt] 4 mg PO Q8HR PRN #20 tab.rapdis 11/20/17 Unknown Rx Dicyclomine [Bentyl] 10 mg PO QID PRN #20 capsule 02/01/18 Unknown Rx Metoclopramide [Reglan] 10 mg PO Q6HR PRN #20 tab 02/01/18 Unknown Rx Ondansetron [Zofran ODT TAB] 4 mg PO Q4HR PRN #20 tab.rapdis 03/22/18 Unknown Rx traMADol [Ultram] 50 mg PO Q6HR PRN #12 tablet 03/22/18 Unknown Rx Review of Systems Constitutional: fatigue, no weight loss, no weight gain, no fever, no chills, no sweats Ears, nose, mouth and throat: no ear pain, no ear discharge, no tinnitis, no decreased hearing, no nose pain, no nasal congestion, no nasal discharge Cardiovascular: no chest pain, no orthopnea, no palpitations, no rapid/irregular heart beat, no edema Respiratory: no cough with sputum, no excessive sputum, no hemoptysis, no shortness of breath, no dyspnea on exertion Gastrointestinal: abdominal pain, no nausea, no vomiting, no diarrhea, no constipation, no change in bowel habits, no hematemesis Genitourinary Female: no pelvic pain, no flank pain, no menorrhagia, no dysuria, no urinary frequency Rectal: no pain, no incontinence, no bleeding Musculoskeletal: no neck stiffness, no neck pain, no shooting arm pain, no arm numbness/tingling, no low back pain, no shooting leg pain Integumentary: no rash, no pruritis, no redness, no sores, no wounds Neurological: no head injury, no transient paralysis, no paralysis, no weakness, no parathesias, no numbness Psychiatric: no memory loss, no change in sleep habits, no sleep disturbances, no insomnia, no hypersomnia, no change in appetite Endocrine: no cold intolerance, no heat intolerance, no polyphagia, no excessive thirst, no polydipsia Hematologic/Lymphatic: no easy bruising, no easy bleeding, no lymphadenopathy, no lymphedema Exam - Vital Signs Vital signs: Vital Signs Temp Pulse BP Pulse Ox 98 F 100 H 140/90 18 L 05/18/18 12:06 05/18/18 12:06 05/18/18 12:06 05/18/18 12:06 - General Appearance General appearance: well-developed, fatigue EENT: ATNC, PERRL, hearing intact, vision intact Neck: Present: neck supple, trachea midline Respiratory: Decreased Breath Sounds Heart: tachycardia, S1S2 Gastrointestinal: Present: normoactive bowel sounds Integumentary: warm and dry Neurologic: alert and oriented x3 Musculoskeletal: Present: other (No edema) Results - Lab Results 05/18/18 12:39 05/18/18 12:39 Most recent lab results Calcium 8.3 mg/dL (8.4-10.2) L 05/18/18 12:39 Assessment and Plan End Stage Renal Disease on hemodialysis: Diabetes Mellitus: Hypertension: Abdominal pain: -S/P HD today at her outpatient dialysis clinic -No further dialysis needed for today -Fluid restriction of 1 liter per day -Has left IJ perm-catheter in place -Obtain daily weights -Assess dialysis needs daily -Further management per primary
[2018-05-18] MEDS ORDERED: APRESOLINE IV ONE (17:44)
--- NOTE | 2018-05-18 18:24 | Magnetic Resonance Report ---
FINAL REPORT PROCEDURE: MRI brain without contrast. TECHNIQUE: Magnetic resonance imaging of the brain was performed without contrast material. HISTORY: Headache, abnormal CT scan. COMPARISON: No comparison studies sent. FINDINGS: The ventricles are normal in size. There is normal signal intensity from the astudillo matter and white ma tter. There are no mass lesions. There is no intracranial hemorrhage. There are no signs of restricte d diffusion. The mastoid air cells and paranasal sinuses are well aerated. IMPRESSION: Normal study.
[2018-05-18] MEDS ORDERED: NORMODYNE IV ONE (18:41)
[2018-05-18 19:57] VITALS: BP 150/105
== END 2018-05-18 20:36 | disposition home or self-care (01) ==
LOC: ED 11:54
DX: R10.84 Generalized abdominal pain (principal); R51 Headache; E11.22 Type 2 diabetes mellitus with diabetic chronic kidney disease; I12.0 Hypertensive chronic kidney disease with stage 5 chronic kidney disease or end stage renal disease; N18.6 End stage renal disease; Z99.2 Dependence on renal dialysis
CPT/HCPCS: 36415; 70450; 70551; 74022; 74176; 80048; 80076; 83690; 84703; 85025; 93005; 93010; 96374; 96375; 96376; 99285; J0360; J1170; J2405